=== PATIENT | female | born 1960 | race American Indian/Alaskan Native ===

== ENCOUNTER 2019-04-08 07:09 | Emergency (ER) | payer BC ==
[2019-04-08 07:15] VITALS: BP 121/80
--- NOTE | 2019-04-08 08:24 | Emergency Department Report ---
ED General Adult HPI - General Chief complaint: Pain General Stated complaint: BODY PAIN Time Seen by Provider: 04/08/19 07:54 Source: patient Mode of arrival: Ambulatory Limitations: No Limitations - History of Present Illness Initial comments: Patient is a 59-year-old female with a history of bulging disc of the lumbar spine presents to ED complaining of worsening pain to bilateral legs and feet and tingling sensations in her hands. Patient states that a year ago she had an MRI done and had a mild bulging disc. Patient states the pain 2 weeks. She states that the pain got worse yesterday so she came in. She denies any fall, trauma, injuries. Patient did mention that she recently returned back from [place] this past Tuesday. Patient denies fever, chills, nausea vomiting, cough or any other symptoms. -: Gradual Location: back, lower extremity (bilateral) Radiation: non-radiation Severity scale (0 -10): 5 Quality: aching, other (tingling) Treatments Prior to Arrival: none - Related Data Home Medications Medication Instructions Recorded Confirmed Last Taken Zolpidem Tartrate [Ambien] 10 mg PO HS 05/12/15 05/30/15 Unknown clonazePAM [KlonoPIN] 1 mg PO BID 05/12/15 05/30/15 Unknown Celexa 0.5 mg PO DAILY 05/30/15 05/30/15 Unknown Remeron 12.5 mg PO QHS 05/30/15 05/30/15 Unknown Previous Rx's Medication Instructions Recorded Last Taken Type Diclofenac Dr [Voltaren Dr] 75 mg PO BID #20 tablet 04/08/19 Unknown Rx Allergies Allergy/AdvReac Type Severity Reaction Status Date / Time No Known Allergies Allergy Unverified 05/30/15 12:26 ED Review of Systems ROS: Stated complaint: BODY PAIN Other details as noted in HPI Comment: All other systems reviewed and negative ED Past Medical Hx - Past Medical History Previous Medical History?: Yes Hx Psychiatric Treatment: Yes (Anxiety/ Panic attacks) - Surgical History Past Surgical History?: Yes Additional Surgical History: Cesearan - Social History Smoking Status: Never Smoker - Medications Home Medications: Home Medications Medication Instructions Recorded Confirmed Last Taken Type Zolpidem Tartrate [Ambien] 10 mg PO HS 05/12/15 05/30/15 Unknown History clonazePAM [KlonoPIN] 1 mg PO BID 05/12/15 05/30/15 Unknown History Celexa 0.5 mg PO DAILY 05/30/15 05/30/15 Unknown History Remeron 12.5 mg PO QHS 05/30/15 05/30/15 Unknown History Diclofenac [Zeeshan Miranda] 75 mg PO BID #20 tablet 04/08/19 Unknown Rx ED Physical Exam - General Limitations: No Limitations General appearance: alert, in no apparent distress - Head Head exam: Present: atraumatic, normocephalic - Eye Eye exam: Present: normal appearance Pupils: Present: normal accommodation - ENT ENT exam: Present: mucous membranes moist - Neck Neck exam: Present: normal inspection, full ROM. Absent: tenderness - Respiratory Respiratory exam: Present: normal lung sounds bilaterally. Absent: respiratory distress - Cardiovascular Cardiovascular Exam: Present: regular rate, normal rhythm. Absent: systolic murmur, diastolic murmur, rubs, gallop - GI/Abdominal GI/Abdominal exam: Present: soft, normal bowel sounds - Extremities Exam Extremities exam: Present: normal inspection, full ROM. Absent: tenderness, joint swelling, calf tenderness (bilaterally) - Back Exam Back exam: Present: normal inspection - Neurological Exam Neurological exam: Present: alert, oriented X3, normal gait - Psychiatric Psychiatric exam: Present: normal affect, normal mood - Skin Skin exam: Present: warm, dry, intact, normal color. Absent: rash ED Course Vital Signs 04/08/19 07:12 Temperature 97.4 F L Pulse Rate 82 Respiratory 18 Rate Blood Pressure 121/80 O2 Sat by Pulse 100 Oximetry ED Medical Decision Making - Medical Decision Making 59-year-old female presents with lumbar radiculopathy. Last MRI was last seen, patient followed by [facility]. I discussed the patient to follow-up with her neurologist and discuss worsening chronic pain. Patient had no neurological deficit. Vital signs are normal she is in no acute distress distress. Patient able to ambulate without any problems. I discussed with the patient that if she started to express any new symptoms such as fever, cough, nausea vomiting abdominal pain to return to the ED immediately. Otherwise follow-up with the primary care physician. Critical care attestation.: If time is entered above; I have spent that time in minutes in the direct care of this critically ill patient, excluding procedure time. ED Disposition Clinical Impression: Lumbar radiculopathy Disposition: DC-01 TO HOME OR SELFCARE Is pt being admited?: No Does the pt Need Aspirin: No Condition: Stable Instructions: Sciatica (ED), Lumbar Radiculopathy (ED) Additional Instructions: Make sure to follow up with the primary care physician as well as [facility] as discussed. Take all your medications as you've been prescribed. If you have any worsening symptoms or develop new symptoms please return to ED immediately. Prescriptions: Diclofenac [Zeeshan Miranda] 75 mg PO BID #20 tablet Referrals: JAMEY VERA MD [Staff Physician] - 3-5 Days ELVIA ANTONIO MD [Staff Physician] - 3-5 Days Forms: Accompanied Note, Work/School Release Form(ED) Time of Disposition: 08:23
== END 2019-04-08 08:41 | disposition home or self-care (01) ==
LOC: ED 07:09
DX: M54.16 Radiculopathy, lumbar region (principal); F41.9 Anxiety disorder, unspecified; F41.0 Panic disorder [episodic paroxysmal anxiety]
CPT/HCPCS: 99282

== ENCOUNTER 2021-03-11 09:27 | Emergency (ER) | payer BC ==
--- NOTE | 2021-03-11 10:01 | Event Note ---
ED Screening Note Date of service: 03/11/21 Time: 10:01 ED Screening Note: Patient complains of chest pain, shortness of breath, and dizziness x1 week This initial assessment/diagnostic orders/clinical plan/treatment(s) is/are subject to change based on patients health status, clinical progression and re- assessment by fellow clinical providers in the ED. Further treatment and workup at subsequent clinical providers discretion. Patient/guardian urged not to elope from the ED as their condition may be serious if not clinically assessed and managed. Initial orders include: Labs EKG Chest x-ray
[2021-03-11 10:30] LABS: Basophils % (Auto) 0.4 % (0.0-1.8); Eosinophils # (Auto) 0.1 K/mm3 (0.0-0.4); Eosinophils % (Auto) 3.3 % (0.0-4.3); Hematocrit 38.4 % (30.3-42.9); Hemoglobin 12.8 gm/dl (10.1-14.3); Lymphocytes # (Auto) 1.3 K/mm3 (1.2-5.4); Mean Corpuscular HGB Conc 33 % (30-34); Mean Corpuscular Volume 87 fl (79-97); Monocytes # (Auto) 0.2 K/mm3 (0.0-0.8); Monocytes % (Auto) 6.2 % (0.0-7.3); Platelet Count 162 K/mm3 (140-440); Red Blood Count 4.41 M/mm3 (3.65-5.03); Red Cell Distribution Width 14.5 % (13.2-15.2)
--- NOTE | 2021-03-11 10:38 | XRay Report ---
CHEST 2 VIEWS INDICATION / CLINICAL INFORMATION: chest pain. COMPARISON: 11/08/12 FINDINGS: SUPPORT DEVICES: None. HEART / MEDIASTINUM: No significant abnormality. LUNGS / PLEURA: No significant pulmonary or pleural abnormality. No pneumothorax. ADDITIONAL FINDINGS: No significant additional findings. IMPRESSION: 1. No acute findings. Signer Name: Newton Alvarado MD Signed: 03/11/2021 10:33 AM Workstation Name: [id number]
[2021-03-11 11:03] LABS: Alanine Aminotransferase 18 units/L (7-56); Albumin 4.2 g/dL (3.9-5); BUN/Creatinine Ratio 9; Blood Urea Nitrogen 9 mg/dL (7-17); Calcium 9.7 mg/dL (8.4-10.2); Hemolysis Index 16
--- NOTE | 2021-03-11 16:52 | Emergency Department Report ---
ED Chest Pain HPI - General Chief Complaint: Chest Pain Stated Complaint: CHEST PAIN, DIZZINESS, IRIS Time Seen by Provider: 03/11/21 10:00 Source: patient Mode of arrival: Ambulatory Limitations: No Limitations - History of Present Illness Initial Comments: 60-year-old female, history of anxiety, hyperlipidemia, presents to the ED with 1 week history of chest pain. Patient describes it as pressure in the center of her chest, nonradiating, constant. Patient reports associated shortness of breath, headache, and lightheadedness along with this chest pressure. She denies any aggravating or alleviating factors. Patient denies any leg pain or swelling. She denies any cough or fever. Patient reports she is fully vaccinated with Coupsta COVID-19 vaccine. Complaint: chest pain -: week(s) (1) Onset: during rest Pain Location: substernal Pain Radiation: none Severity: moderate Quality: pressure Consistency: constant Improves With: nothing Worsens With: nothing re: dyspnea. denies: nausea, vomting, diaphoresis Other Symptoms: denies: cough, fever, leg swelling Treatments Prior to Arrival: none - Related Data Home Medications Medication Instructions Recorded Confirmed Last Taken Zolpidem Tartrate [Ambien] 10 mg PO HS 05/12/15 05/30/15 Unknown clonazePAM [KlonoPIN] 1 mg PO BID 05/12/15 05/30/15 Unknown Celexa 0.5 mg PO DAILY 05/30/15 05/30/15 Unknown Remeron 12.5 mg PO QHS 05/30/15 05/30/15 Unknown Previous Rx's Medication Instructions Recorded Last Taken Type Diclofenac [Zeeshan Miranda] 75 mg PO BID #20 tablet 04/08/19 Unknown Rx Allergies Allergy/AdvReac Type Severity Reaction Status Date / Time No Known Allergies Allergy Verified 03/11/21 09:57 Heart Score - HEART Score History: Slightly suspicious EKG: Non-specific Age: 45-65 Risk factors: 1-2 risk factors Troponin: < normal limit HEART Score: 3 - EKG Read Time Time EKG Completed: 10:01 EKG Read Time: 10:06 ED Review of Systems ROS: Stated complaint: CHEST PAIN, DIZZINESS, IRIS Other details as noted in HPI Comment: All other systems reviewed and negative Constitutional: denies: fever Respiratory: shortness of breath. denies: cough Cardiovascular: chest pain Gastrointestinal: denies: nausea, vomiting Neurological: other (Patient reports lightheadedness). denies: vertigo ED Past Medical Hx - Past Medical History Hx Psychiatric Treatment: Yes (Anxiety/ Panic attacks) - Surgical History Additional Surgical History: Cesearan - Social History Smoking Status: Never Smoker Substance Use Type: None - Medications Home Medications: Home Medications Medication Instructions Recorded Confirmed Last Taken Type Zolpidem Tartrate [Ambien] 10 mg PO HS 05/12/15 05/30/15 Unknown History clonazePAM [KlonoPIN] 1 mg PO BID 05/12/15 05/30/15 Unknown History Celexa 0.5 mg PO DAILY 05/30/15 05/30/15 Unknown History Remeron 12.5 mg PO QHS 05/30/15 05/30/[address] [Zeeshan Miranda] 75 mg PO BID #20 tablet 04/08/19 Unknown Rx ED Physical Exam - General Limitations: No Limitations General appearance: alert, in no apparent distress - Head Head exam: Present: atraumatic, normocephalic - Eye Eye exam: Present: normal appearance, EOMI - ENT ENT exam: Present: mucous membranes moist - Neck Neck exam: Present: normal inspection - Respiratory Respiratory exam: Present: normal lung sounds bilaterally. Absent: respiratory distress - Cardiovascular Cardiovascular Exam: Present: regular rate, normal rhythm - GI/Abdominal GI/Abdominal exam: Present: soft. Absent: distended, tenderness - Extremities Exam Extremities exam: Present: normal inspection - Neurological Exam Neurological exam: Present: alert, oriented X3, CN II-XII intact, normal gait. Absent: motor sensory deficit - Psychiatric Psychiatric exam: Present: normal affect, normal mood - Skin Skin exam: Present: warm, dry, intact, normal color ED Course Vital Signs 03/11/21 03/11/21 03/11/21 09:57 17:00 17:46 Temperature 97.8 F Pulse Rate 70 78 72 Respiratory 18 17 17 Rate Blood Pressure 119/80 116/66 135/80 O2 Sat by Pulse 98 98 100 Oximetry 03/11/21 03/11/21 03/11/21 18:00 18:16 18:30 Temperature Pulse Rate 71 74 76 Respiratory 17 16 21 Rate Blood Pressure 135/80 135/80 127/73 O2 Sat by Pulse 99 100 100 Oximetry ALEXIS score - Alexis Score Age > 65: (0) No Aspirin use within the Past 7 Days: (0) No 3 or more CAD Risk Factors: (0) No 2 or more Angina events in past 24 hrs: (0) No Known CAD with more than 50% Stenosis: (0) No Elevated Cardiac Markers: (0) No ST Deviation Greater than 0.5mm: (0) No ALEXIS Score: 0 ED Medical Decision Making - Lab Data Result diagrams: 03/11/21 10:10 03/11/21 10:10 - EKG Data -: EKG Interpreted by Me EKG shows normal: sinus rhythm, axis, intervals, QRS complexes, ST-T waves Rate: normal - EKG Data Interpretation: LVH, other (LAFB) - Radiology Data Radiology results: report reviewed, image reviewed - Medical Decision Making 60-year-old female presents to ED with report of continuous chest pressure x1 we ek, with associated headache, dizziness, and shortness of breath. Vital signs are normal. EKG shows LVH, no ST changes. Troponin is negative x2. D-dimer is within normal limits. Patient is not orthostatic. She has a normal neuro exam. Gait is normal. Patient reports constant chest pressure x1 week, I would expect troponin to be elevated by now if there were some cardiac issue going on, however it is not. Patient will be discharged at this time. Information has been faxed to [facility] for urgent cardiology follow-up. Return precautions given. - Differential Diagnosis ACS, dehydration, PE, anxiety Critical care attestation.: If time is entered above; I have spent that time in minutes in the direct care of this critically ill patient, excluding procedure time. ED Disposition Clinical Impression: Chest pain Disposition: - TO HOME OR SELFCARE Is pt being admited?: No Condition: Stable Instructions: Nonspecific Chest Pain, Adult, [id number] Referrals: MARIA EUGENIA LEONARD MD [Primary Care Provider] - 3-5 Days FELIZ MONTIEL MD [Staff Physician] - 3-5 Days Time of Disposition: 18:20
[2021-03-11 17:58] LABS: INR 1.08 (0.87-1.13)
[2021-03-11 17:59] LABS: Partial Thromboplastin Time 30.9 Sec. (24.2-36.6)
[2021-03-11 18:42] VITALS: BP 127/73
--- NOTE | 2021-03-12 10:49 | Electrocardiograph Report ---
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
--- NOTE | 2021-03-12 10:52 | Electrocardiograph Report ---
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
== END 2021-03-11 18:41 | disposition home or self-care (01) ==
LOC: ED 09:27
DX: R07.9 Chest pain, unspecified (principal); F41.9 Anxiety disorder, unspecified; Z79.899 Other long term (current) drug therapy; Z98.890 Other specified postprocedural states
CPT/HCPCS: 36415; 71046; 80053; 84484; 85025; 85379; 85610; 85730; 93005